=== PATIENT | male | born 1985 | race Caucasian/White ===

== ENCOUNTER 2019-07-16 21:20 | Emergency (ER) | payer BC, SELFPAY ==
[~2019-07-16] VITALS: Ht 182.9 cm; Wt 95.5 kg
[2019-07-16] MEDS ORDERED: NEXI20CA PO (21:42)
[2019-07-16 22:10] LABS: BASO # 0.1 10^3/uL (0.0-0.2); BASO % 0.7 % (0.0-1.0); EOS # 0.1 10^3/uL (0.0-0.5); EOS % 1.5 % (0.0-3.0); HEMATOCRIT 46.1 % (42.0-52.0); HEMOGLOBIN 15.3 g/dl (13.5-17.5); LYMPH # 2.4 10^3/uL (1.5-5.0); LYMPH % 31.6 % (24.0-44.0); MEAN CORPUSCULAR HEMOGLOBIN 28.8 pg (27.0-33.0); MEAN CORPUSCULAR HGB CONC 33.2 g/dl (32.0-36.5); MEAN CORPUSCULAR VOLUME 86.8 fl (80.0-96.0); MONO # 0.7 10^3/uL (0.0-0.8); MONO % 9.3 % (0.0-5.0); NEUTROPHILS # 4.3 10^3/uL (1.5-8.5); NEUTROPHILS % 56.6 % (36.0-66.0); PLATELET COUNT, AUTOMATED 290 10^3/uL (150-450); RED BLOOD COUNT 5.31 10^6/uL (4.30-6.10); WHITE BLOOD COUNT 7.6 10^3/uL (4.0-10.0)
[2019-07-16 22:36] LABS: BLOOD UREA NITROGEN 12 MG/DL (7-18); CALCIUM LEVEL 9.5 MG/DL (8.5-10.1); CARBON DIOXIDE LEVEL 27 MEQ/L (21-32); CHLORIDE LEVEL 106 MEQ/L (98-107); CK-MB VALUE MASS 1.1 NG/ML (<3.6); CPK CREATINE PHOSPHOKINASE 257 U/L (39-308); CREATININE FOR GFR 0.85 MG/DL (0.70-1.30); GLOMERULAR FILTRATION RATE > 60.0 (>60); GLUCOSE, FASTING 101 MG/DL (70-100); MB/CK RELATIVE INDEX 0.43 (< OR =4); POTASSIUM SERUM 3.6 MEQ/L (3.5-5.1); SODIUM LEVEL 141 MEQ/L (136-145); TROPONIN I < 0.02 NG/ML (< 0.10)
[2019-07-16 23:26] LABS: INFLUENZA A AMPLIFICATION POSITIVE (NEGATIVE); INFLUENZA B AMPLIFICATION NEGATIVE (NEGATIVE)
[2019-07-16] MEDS ORDERED: OSEL75CA PO (23:41)
[2019-07-16 23:45] VITALS: BP 155/94
--- NOTE | 2019-07-17 08:43 | REP ---
Portable chest x-ray: Single view. History: Chest pain. No comparison study. Findings: EKG monitoring electrodes are seen. The lungs are well inflated and clear. The pleural angles are sharp. Heart size is normal. No bony abnormalities seen. Pulmonary vasculature is not increased. Impression: Negative portable chest x-ray. Electronically Signed by Abe Em MD 07/17/2019 08:35 A
--- NOTE | 2019-07-17 09:05 | ECGEPIP ---
[facility] - ED Test Date: 2019-07-16 Pat Name: SANDEEP AMAYA Department: Room: - Gender: Male [employer]: naye : 1985 Requested By: AALIYAH WEST Order Number: [id number] Reading MD: Benjamin Lance Measurements Intervals [place] Rate: 94 P: 64 [place]: 161 QRS: 66 QRSD: 102 T: 18 QT: 353 QTc: 442 Interpretive Statements SINUS RHYTHM NSTTW ABNORMALITIES NO PRIORS FOR COMPARISON Electronically Signed on 07-17-2019 9:05:17 EST by Benjamin Lance
== END 2019-07-16 23:55 | disposition home or self-care (01) ==
LOC: M ED 21:20
DX: J09.X2 Influenza due to identified novel influenza A virus with other respiratory manifestations (principal); I10 Essential (primary) hypertension; F17.200 Nicotine dependence, unspecified, uncomplicated; Z88.0 Allergy status to penicillin

== ENCOUNTER → 2023-02-17 | Outpatient (CLI) | payer OTHER ==
[~2023-02-17] MED LIST: NEXI20CA PO; OSEL75CA PO
== END ==
LOC: M WUC 08:31
PROVIDERS: ATTEND Physician Assistant Medical
DX: M25.511 Pain in right shoulder (principal)

== ENCOUNTER → 2023-12-01 | Outpatient (REF) | payer OTHER ==
[2023-12-02 20:08] LABS: TESTOSTERONE FREE (DIRECT) 7.8 pg/mL (6.8-21.5)
== END ==
LOC: M LAB REF 12:59
PROVIDERS: ATTEND Physician Assistant Medical
DX: N52.9 Male erectile dysfunction, unspecified (principal)

== ENCOUNTER → 2023-12-31 | Outpatient (REF) | payer OTHER | LOC: M LAB REF 12:36 | PROVIDERS: ATTEND Physician Assistant Medical | DX: N52.9 Male erectile dysfunction, unspecified (principal) ==

== ENCOUNTER → 2024-05-11 | Outpatient (CLI) | payer OTHER | LOC: M WUC 09:23 | PROVIDERS: ATTEND Family Medicine | DX: R91.8 Other nonspecific abnormal finding of lung field (principal) ==